=== PATIENT | male | born 1985 | race Two or more races ===

== ENCOUNTER 2017-09-14 16:33 | Emergency (ER) | payer SELFPAY ==
[~2017-09-14] VITALS: Ht 177.8 cm; Wt 65.8 kg
[2017-09-14 17:26] VITALS: BP 120/76
[2017-09-14] MEDS ORDERED: IBUPROFEN 800 MG TAB PO ONE ×2 (18:14→18:30)
== END 2017-09-14 18:22 | disposition home or self-care (01) ==
LOC: ER 16:42
DX: S02.2XXA Fracture of nasal bones, initial encounter for closed fracture (principal); S00.83XA Contusion of other part of head, initial encounter; F17.210 Nicotine dependence, cigarettes, uncomplicated; Y08.89XA Assault by other specified means, initial encounter; Y93.89 Activity, other specified; Y99.8 Other external cause status; Y92.89 Other specified places as the place of occurrence of the external cause
CPT/HCPCS: 70160